=== PATIENT | female | born 1970 | race African-American/Black ===

== ENCOUNTER 2019-03-11 17:06 | Emergency (ER) | payer MEDICAID, OTHER ==
[~2019-03-11] VITALS: Ht 165.1 cm; Wt 100.0 kg
[2019-03-11 17:49] LABS: BASOPHILS % 0.9 % (0.0-2.0); EOSINOPHILS % 2.7 % (0.0-5.0); HEMOGLOBIN. 13.7 g/dL (12.0-16.0); LYMPHOCYTES % 34.1 % (20.0-50.0); MEAN CORPUSCULAR HEMOGLOBIN 27.1 pg (28.0-32.0); MEAN CORPUSCULAR VOLUME 83.3 fL (81.0-99.0); MEAN PLATELET VOLUME 7.8 fl (7.4-10.4); MONOCYTES % 7.2 % (2.0-8.0); NEUTROPHILS % 55.1 % (40.0-76.0); PLATELET 197 x1000/uL (130-400); RED BLOOD CELL COUNT 5.04 mill/uL (4.2-5.4); RED CELL DISTRIBUTION WIDTH 14.5 % (11.6-14.6)
[2019-03-11 17:55] LABS: CHLORIDE 108 mEq/L (98-107)
[2019-03-11 17:59] LABS: ETHANOL BLOOD < 10 mg/dL
[2019-03-11] MEDS ORDERED: SODIUM CHLORIDE 0.9% 1,000 ML IV ONE (18:07)
[2019-03-11] MEDS ORDERED: ONDANSETRON HCL 4MG/2ML INJ IV STA (18:07)
[2019-03-11] MEDS ORDERED: KETOROLAC 30MG/ML VIAL IV STA (18:07)
[2019-03-11] MEDS ORDERED: MORPHINE SULFATE 4 MG/ML CPJ (NOT FOR IM USE) IV STA (18:07)
[2019-03-11 18:10] LABS: PARTIAL THROMBOPLASTIN TIME 27.8 sec (23.4-31.0); PROTHROMBIN TIME 10.2 sec (9.6-11.0)
[2019-03-11 18:16] LABS: METHADONE URINE SCREEN NEGATIVE (NEGATIVE); OPIATES URINE SCREEN NEGATIVE (NEGATIVE)
[2019-03-11 18:17] LABS: *AMPHETAMINES SCREEN URINE NEGATIVE (NEGATIVE); *BARBITURATES SCREEN URINE NEGATIVE (NEGATIVE); *BENZODIAZEPINES SCREEN URINE NEGATIVE (NEGATIVE); *COCAINE SCREEN URINE NEGATIVE (NEGATIVE); PHENCYCLIDINE URINE SCREEN NEGATIVE (NEGATIVE)
[2019-03-11 18:21] LABS: CANNABINOID URINE SCREEN PRESUMTIVE POSITIVE (NEGATIVE)
[2019-03-11 21:16] VITALS: BP 123/68
== END 2019-03-11 21:30 | disposition home or self-care (01) ==
LOC: ER 17:06
DX: R07.89 Other chest pain (principal); R05 Cough; R42 Dizziness and giddiness; Z73.3 Stress, not elsewhere classified; I44.0 Atrioventricular block, first degree; F12.90 Cannabis use, unspecified, uncomplicated; F17.210 Nicotine dependence, cigarettes, uncomplicated; Z85.3 Personal history of malignant neoplasm of breast; Z86.711 Personal history of pulmonary embolism
CPT/HCPCS: 36415; 71045; 71275; 76604; 80053; 80305; 80320; 83880; 84484; 85025; 85379; 85610; 85730; 93005; 93970; 99284; J7030; G0480